=== PATIENT | male | born 1995 | race Two or more races ===

== ENCOUNTER 2018-05-03 18:08 | Emergency (ER) | payer MEDICAID ==
[~2018-05-03] VITALS: Ht 180.3 cm; Wt 68.0 kg
[2018-05-03 18:28] VITALS: BP 141/70
[2018-05-03] MEDS ORDERED: ACETAMINOPHEN 500 MG TAB PO ONE (21:00)
[2018-05-03] MEDS ORDERED: IBUPROFEN 800 MG TAB PO ONE (21:00)
== END 2018-05-03 21:41 | disposition home or self-care (01) ==
LOC: ER 18:08
DX: S52.502A Unspecified fracture of the lower end of left radius, initial encounter for closed fracture (principal); S52.602A Unspecified fracture of lower end of left ulna, initial encounter for closed fracture; W17.89XA Other fall from one level to another, initial encounter; Y93.I9 Activity, other involving external motion; Y92.828 Other wilderness area as the place of occurrence of the external cause; Y99.8 Other external cause status
CPT/HCPCS: 73110

== ENCOUNTER 2023-07-29 10:32 | Day surgery (SDC) | payer MEDICAID ==
[~2023-07-29] VITALS: Ht 180.3 cm; Wt 77.1 kg
[2023-07-29] MEDS ORDERED: ePHEDrine SULFATE 50 MG/ML AMP IV ONE (10:33)
[2023-07-29] MEDS ORDERED: HYDROmorphone HCL 2 MG/ML VL/or syr ONE (11:28)
[2023-07-29] MEDS ORDERED: fentaNYL CITRATE 100 MCG/2 ML VL ONE (11:28)
[2023-07-29] MEDS ORDERED: MIDAZOLAM HCL 2MG/2ML 2ml VIAL (1mg/ml) ONE (11:28)
[2023-07-29] MEDS ORDERED: KETAMINE 50mg/ML 1ml syringe ONE (11:28)
[2023-07-29] MEDS ORDERED: LIDOCAINE 2% (LOCAL ANESTH.) PF 5ml SDV ONE (11:29)
[2023-07-29] MEDS ORDERED: KETOROLAC TROMETH 30 MG/ML 1ML VIAL ONE (11:29)
[2023-07-29] MEDS ORDERED: ONDANSETRON HCL 4 MG/2 ML VIAL ONE (11:29)
[2023-07-29] MEDS ORDERED: GLYCOPYRROLATE 0.2 MG/ML 1ML VIAL ONE (11:29)
[2023-07-29] MEDS ORDERED: DexAMETHasone SOD PHOS 10MG/1ML VIAL INJ ONE (11:29)
[2023-07-29] MEDS ORDERED: PROPOFOL 10 MG/ML 20 ML IV ONE (11:29)
[2023-07-29] MEDS ORDERED: ceFAZolin 2 GM/D5W50ml 50 ML IV ONE (11:57)
[2023-07-29] MEDS ORDERED: EPINEPHrine HCL 1 MG/1 ML AMP ONE (12:51)
[2023-07-29] MEDS ORDERED: ROPIVACAINE 0.5% (5MG/ML) 20ML AMPULE IJ ONE (13:08)
[2023-07-29] MEDS ORDERED: BACITRACIN TOP OINT 1 UD PKG TOP ONE (14:06)
[2023-07-29] MEDS ORDERED: MEPERIDINE HCL (50 MG/ML) 1 ML VIAL ONE (14:17)
[2023-07-29] MEDS ORDERED: CEPH500C PO (15:00)
[2023-07-29] MEDS ORDERED: HYDR1TAB97 PO (15:00)
[2023-07-29] MEDS ORDERED: ASPI-498 OR (15:00)
[2023-07-29 15:22] VITALS: TEMP 97.2; O2SAT 99
[2023-07-29] MEDS ORDERED: HYDROmorphone HCL 2 MG/ML VL/or syr IV PRN (15:45)
[2023-07-29] MEDS ORDERED: ONDANSETRON HCL 4 MG/2 ML VIAL IV ONE (15:45)
[2023-07-29 16:22] VITALS: BP 136/88; PULSE 61; RESP 11; O2SAT 100
== END 2023-07-29 16:30 | disposition home or self-care (01) ==
LOC: SUR 10:32
PROVIDERS: ATTEND Orthopaedic Surgery Sports Medicine
DX: S83.511A Sprain of anterior cruciate ligament of right knee, initial encounter (principal); S83.211A Bucket-handle tear of medial meniscus, current injury, right knee, initial encounter; J45.909 Unspecified asthma, uncomplicated; F12.90 Cannabis use, unspecified, uncomplicated; F17.210 Nicotine dependence, cigarettes, uncomplicated; Z79.899 Other long term (current) drug therapy; Z90.49 Acquired absence of other specified parts of digestive tract; Z98.890 Other specified postprocedural states
CPT/HCPCS: 29881; 29882; 29888; 73562; C1713; C1762; J0171; J0690; J1100; J1170; J1885; J2001; J2175; J2250; J2405; J2704; J2795; J3010; 76000

== ENCOUNTER 2023-11-03 07:58 | Emergency (ER) | payer MEDICAID ==
[~2023-11-03] VITALS: Ht 180.3 cm; Wt 76.8 kg
[~2023-11-03 07:58] MED LIST: ASPI-498 OR; CEPH500C PO; HYDR1TAB97 PO
[2023-11-03 08:28] VITALS: BP 123/83; PULSE 69; RESP 16; TEMP 97.5; O2SAT 98
[2023-11-03] MEDS: NEOMYCIN-BACITRACIN-POLYM UNITDOSE PKG TOP OINT TOP ONE (08:41)
[2023-11-03] MEDS: TETANUS-DIPTH-ACEL PERTUSSIS 0.5ML SYR Tdap IM ONE (08:41)
[2023-11-03] MEDS ORDERED: RABIES IMMUNE GLOBULIN 300unit/2ml (150unit/ml) INJ IM ONE (08:45)
[2023-11-03] MEDS ORDERED: AUG875T PO (08:58)
[2023-11-03] MEDS: RABIES VACCINE (PCEC)/PF 2.5 UNITS IM ONE (09:13)
== END 2023-11-03 09:32 | disposition home or self-care (01) ==
LOC: ER 07:58
DX: S61.051A Open bite of right thumb without damage to nail, initial encounter (principal); W54.0XXA Bitten by dog, initial encounter; Y93.89 Activity, other specified; Y92.096 Garden or yard of other non-institutional residence as the place of occurrence of the external cause; Y99.8 Other external cause status
CPT/HCPCS: 90471; 90472; 90675; 90715

== ENCOUNTER 2023-11-06 16:11 | Emergency (ER) | payer MEDICAID ==
[~2023-11-06] VITALS: Ht 180.3 cm; Wt 76.5 kg
[~2023-11-06 16:11] MED LIST changes: +AUG875T PO
[2023-11-06 17:33] VITALS: BP 113/65; PULSE 75; RESP 16; TEMP 98.3; O2SAT 97
[2023-11-06] MEDS: RABIES VACCINE (PCEC)/PF 2.5 UNITS IM ONE (17:35)
== END 2023-11-06 17:45 | disposition home or self-care (01) ==
LOC: ER 16:11
DX: Z23 Encounter for immunization (principal); S61.051D Open bite of right thumb without damage to nail, subsequent encounter; W54.0XXD Bitten by dog, subsequent encounter
CPT/HCPCS: 90471; 90675

== ENCOUNTER 2023-11-10 15:30 | Emergency (ER) | payer MEDICAID ==
[~2023-11-10] VITALS: Ht 180.3 cm; Wt 76.0 kg
[2023-11-10 18:52] VITALS: BP 120/75; PULSE 18; RESP 18; TEMP 98.3; O2SAT 97
[2023-11-10] MEDS: RABIES VACCINE (PCEC)/PF 2.5 UNITS IM ONE (20:56)
[2023-11-17] MEDS ORDERED: RABIES VACCINE (PCEC)/PF 2.5 UNITS IM ONE (09:45)
== END 2023-11-10 20:58 | disposition home or self-care (01) ==
LOC: ER 15:30
DX: S60.311D Abrasion of right thumb, subsequent encounter (principal); Z23 Encounter for immunization; Z79.899 Other long term (current) drug therapy; W54.0XXD Bitten by dog, subsequent encounter
CPT/HCPCS: 90471; 90675

== ENCOUNTER 2023-11-17 08:49 | Emergency (ER) | payer MEDICAID ==
[~2023-11-17] VITALS: Ht 180.3 cm; Wt 77.0 kg
[2023-11-17 09:20] VITALS: BP 129/70; PULSE 88; RESP 18; TEMP 98.8; O2SAT 96
[2023-11-17] MEDS: RABIES VACCINE (PCEC)/PF 2.5 UNITS IM ONE (10:07)
== END 2023-11-17 10:20 | disposition home or self-care (01) ==
LOC: ER 08:49
DX: Z23 Encounter for immunization (principal)
CPT/HCPCS: 90471; 90675